=== PATIENT | female | born 1960 | race Caucasian/White ===

== ENCOUNTER → 2017-06-27 | Outpatient (CLI) | payer BC ==
--- NOTE | 2017-06-27 13:20 | RAD ---
EXAM DESCRIPTION: Knee,Left Complete CLINICAL HISTORY: 57 years, Female, PAIN COMPARISON: None TECHNIQUE: 4 views of the left knee including standing views FINDINGS: No fracture or dislocation. Bones appear normally mineralized with normal trabecular pattern. Narrowed appearance of medial more than lateral compartments on frontal view. Sclerosis and eburnation is prominent in the medial compartment with medial and lateral joint line spurring. There is calcification of the menisci. Lateral view shows normal position of the patella. Prominent posterior patellar spurring is present. Moderate-sized suprapatellar knee joint effusion. Normal contour of quadriceps and patellar tendons. No abnormal patellar tilt or subluxation on patellar sunrise view. Prominent posterior medial patellar spurring is seen with prominent spurring of the anterior medial and lateral femoral trochlear margins. IMPRESSION: Degenerative changes as described. Electronically signed by: Matt Galvan MD 06/27/2017 1:19 PM CDT
--- NOTE | 2017-06-27 13:21 | RAD ---
EXAM DESCRIPTION: Pelvis CLINICAL HISTORY: 57 years Female, PAIN COMPARISON: None. TECHNIQUE: Single frontal x-ray view of pelvis and hips FINDINGS: Orthopedic screws are seen in the lower L-spine with intervertebral disc spacer at L3-4. Severely narrowed L4-5 and L5-S1 disc spaces. Sacrum appears intact with degenerative changes at the SI joints. Surgical staple lines are seen in the pelvis. Degenerative narrowing of the left hip joint is seen with spurring. No pelvic fracture. Proximal femurs appear intact. IMPRESSION: Negative for fracture or dislocation. Degenerative changes in the left hip and lower L-spine. Electronically signed by: Matt Galvan MD 06/27/2017 1:20 PM CDT
== END ==
LOC: RAD 08:23
PROVIDERS: ATTEND Orthopaedic Surgery
DX: M25.562 Pain in left knee (principal); M25.552 Pain in left hip

== ENCOUNTER → 2017-10-16 | Outpatient (CLI) | payer BC ==
--- NOTE | 2017-10-20 10:49 | MAM ---
EXAM DESCRIPTION: 3D Screening BILATERAL : Digital Mammography. CLINICAL HISTORY: 57 years Female SCREENING . No complaints. Remote family history of breast cancer. Childbirth. Postmenopausal. Currently on HRT. COMPARISON: 2-D digital screening bilateral mammography 05/06/2014. No prior reports available. TECHNIQUE: Bilateral CC and MLO projection full-field images, 3-D tomosynthesis digital mammographic technique. CAD not utilized. FINDINGS: The breast parenchymal density pattern is: Scattered areas of fibroglandular density. No skin thickening or nipple retraction. . Bilateral axillary lymph nodes. Bilateral solitary microcalcifications. No new focal, stellate mass or density, focal asymmetry , and no suspicious microcalcifications bilaterally. Stable mammograms compared to prior study, taking into account differences in mammographic technique. IMPRESSION: BI-RADS CATEGORY: 2 - BENIGN FINDINGS. FOLLOW UP: Routine digital bilateral screening, one year interval from October 2017. Written communication explaining the IMPRESSION and follow-up, will be mailed to the patient and referring health care provider. According to the [employer], yearly mammograms are recommended starting at age 40 and continuing as long as a woman is in good health. Any breast change noted on a breast self-exam should be reported promptly to the patient's healthcare provider. Breast MRI is recommended for women with an approximately 20-25% or greater lifetime risk of breast cancer, including women with a strong family history of breast or ovarian cancer and women who have been treated for Hodgkin's disease. A negative mammographic report should not delay tissue diagnosis in patients with significant clinical history or physical findings. Extremely dense breast tissue limits the sensitivity of digital mammography. Electronically signed by: Favian Laguerre MD 10/20/2017 10:47 AM CDT
== END ==
LOC: MAMMO 15:30
PROVIDERS: ATTEND Family Medicine
DX: Z12.31 Encounter for screening mammogram for malignant neoplasm of breast (principal)

== ENCOUNTER 2018-08-19 05:19 | Day surgery (SDC) | payer BC ==
[2018-08-19] MEDS ORDERED: LACTATED RINGERS 1,000 ML ONE (05:47)
--- NOTE | 2018-08-19 09:38 | OP ---
DATE OF PROCEDURE: 08/19/18 PREPROCEDURE DIAGNOSIS: 1. Average-risk colorectal cancer screening. The patient's last colonoscopy was over 10 years ago. POSTPROCEDURE DIAGNOSIS: 1. Colonic polyp. 2. Diverticulosis. 3. Internal hemorrhoids. 4. Melanosis coli. PROCEDURE: 1. Colonoscopy with snare polypectomy. SURGEON: Petey Dunbar MD. SEDATION: Monitored anesthesia care. ESTIMATED BLOOD LOSS: 0 mL. PROCEDURE: Informed consent was obtained prior to sedation. The preprocedure cardiopulmonary assessment was satisfactory. The patient was brought to the Endoscopy Suite and placed in the left lateral decubitus position. The patient was then sedated by the anesthesia team. Digital rectal and perianal exams were normal. The tip of the Olympus colonoscope was inserted into the rectum and advanced under direct visualization to the cecum as identified by the presence of the appendiceal orifice and ileocecal valve. Preparation of the colon was good. The endoscope was then slowly withdrawn. Throughout the entire colon, the colonic mucosa demonstrated mild changes with melanosis. In the mid transverse colon, there was a 12 mm sessile polyp that was resected with hot snare polypectomy and retrieved. In the sigmoid colon, there were a few scattered diverticula. Retroflexed view of the rectum showed small, non- bleeding internal hemorrhoids. The endoscope was then withdrawn from the patient and the procedure terminated. RECOMMENDATION: 1. Discharge the patient home with escort. 2. Resume regular diet. 3. Continue present medications. 4. Followup pathology. 5. Surveillance colonoscopy due in 3 years' time. 6. Return to my office p.r.n. #[id number] [facility]
[2018-08-19] MEDS ORDERED: PROPOFOL 200 MG/20 ML VIAL IV ONE (10:00)
[2018-08-19 10:09] VITALS: O2SAT 98
[2018-08-19 10:34] VITALS: BP 139/89; TEMP 98.1
== END 2018-08-19 10:25 | disposition home or self-care (01) ==
LOC: AMB 05:19
PROVIDERS: ATTEND Internal Medicine Gastroenterology
DX: Z12.11 Encounter for screening for malignant neoplasm of colon (principal); D12.3 Benign neoplasm of transverse colon; K57.30 Diverticulosis of large intestine without perforation or abscess without bleeding; K64.8 Other hemorrhoids; K63.89 Other specified diseases of intestine; I10 Essential (primary) hypertension; Z79.899 Other long term (current) drug therapy
CPT/HCPCS: 00811; 45385; J3490; J7120

== ENCOUNTER → 2019-02-15 | Outpatient (CLI) | payer BC ==
--- NOTE | 2019-02-15 11:15 | RAD ---
EXAM DESCRIPTION: Knee,Right Complete CLINICAL HISTORY: PAIN IN RIGHT KNEE COMPARISON: None. FINDINGS: 4 standing views of the right knee show no acute fracture, focal bone destruction, or joint dislocation. Moderate narrowing of the lateral and mild narrowing of the medial tibiofemoral compartments is seen with mild joint line osteophytes. Calcifications of the meniscal cartilage are seen. Small posterior superior and inferior osteophytes of the patella are seen without significant narrowing of the patellofemoral compartment. Mild increased density in the suprapatellar bursa. Soft tissues are otherwise unremarkable. IMPRESSION: Mild to moderate 3 compartment osteoarthritic changes of the right knee are more prominent in the lateral tibiofemoral compartment. Chondrocalcinosis is seen suggesting CPPD arthropathy versus pseudogout. Electronically signed by: Walter Toribio MD 02/15/2019 11:13 AM [facility]
--- NOTE | 2019-02-15 11:28 | RAD ---
EXAM DESCRIPTION: Pelvis CLINICAL HISTORY: 59 years Female, PAIN IN RIGHT AND LEFT HIP COMPARISON: June 27, 2017 Findings: One view/radiograph Redemonstrated L4/L5 fusion. No complication. Similar L4/L5 and L5/S1 spondylosis. Degenerative changes of the sacroiliac joints, unchanged. No acute fracture or dislocation is identified. Surgical suture material overlies the pelvis. Moderate left and mild right hip osteoarthritis. IMPRESSION: Chronic and degenerative changes. No acute osseous abnormality. Electronically signed by: Frank Myers MD 02/15/2019 11:27 AM [facility]
--- NOTE | 2019-02-15 11:33 | RAD ---
EXAM DESCRIPTION: Knee,Left Complete CLINICAL HISTORY: PAIN IN LEFT KNEE COMPARISON: June 27, 2017 FINDINGS: 4 standing views of the left knee show severe narrowing of the medial tibiofemoral compartment with flattening of the weightbearing articular surface including sclerotic changes and moderate joint line osteophytes worsened from previous. Mild joint line osteophytes of the lateral tibiofemoral compartment are seen. Moderate calcifications in the menisci are identified. Moderate posterior superior osteophyte of the patella with osteophytes of the femoral trochlear groove are seen. Mild narrowing of the patellofemoral compartment. Mild increased density in the suprapatellar bursa. Soft tissues are otherwise unremarkable. IMPRESSION: Interval worsening of to severe 3 compartment osteoarthritic changes of the left knee are most significant in the medial tibiofemoral compartment. Chondrocalcinosis is seen suggesting CPPD arthropathy versus pseudogout. Electronically signed by: Walter Toribio MD 02/15/2019 11:32 AM [facility]
== END ==
LOC: RAD 09:23
PROVIDERS: ATTEND Orthopaedic Surgery
DX: M16.0 Bilateral primary osteoarthritis of hip (principal); M47.896 Other spondylosis, lumbar region; M47.898 Other spondylosis, sacral and sacrococcygeal region; M17.0 Bilateral primary osteoarthritis of knee; M11.261 Other chondrocalcinosis, right knee; M11.262 Other chondrocalcinosis, left knee

== ENCOUNTER → 2019-02-17 | Outpatient (CLI) | payer BC ==
--- NOTE | 2019-02-17 17:22 | RAD ---
EXAM DESCRIPTION: Chest,2 Views CLINICAL HISTORY: PREOP COMPARISON: None TECHNIQUE: PA/lateral FINDINGS: There is no acute appearing cardiac or pulmonary abnormality. Heart size is normal with normal pulmonary vascularity. No pleural effusion or pneumothorax. Lungs are clear with no consolidating infiltrate. Lateral view shows intact sternum and T-spine. IMPRESSION: No acute process is identified in the chest. Electronically signed by: Matt Galvan MD 02/17/2019 5:21 PM [facility]
== END ==
LOC: LAB.O 11:46
PROVIDERS: ATTEND Orthopaedic Surgery
DX: Z01.818 Encounter for other preprocedural examination (principal)

== ENCOUNTER 2019-03-05 05:31 | Inpatient (IN) | payer BC ==
[2019-03-05] MEDS ORDERED: ceFAZolin SODIUM 1 GM VIAL ONE ×3 (05:42→19:48)
[2019-03-05] MEDS ORDERED: LACTATED RINGERS 1,000 ML ONE (05:42)
[2019-03-05] MEDS ORDERED: SODIUM CHL 0.9% 100ML MINI-BAG 100 ML IVPB ONE (05:42)
[2019-03-05] MEDS ORDERED: TRANEXAMIC ACID 1,000 MG/10 ML VIAL ONE ×2 (05:42→05:43)
[2019-03-05] MEDS ORDERED: VANCOMYCIN HCL INJ 1,000 MG VIAL IVPB ONE ×3 (05:42→19:48)
[2019-03-05] MEDS ORDERED: SODIUM CHLORIDE 0.9% 100ML 100 ML IVPB ONE ×3 (05:43→19:48)
[2019-03-05] MEDS ORDERED: SODIUM CHLORIDE 0.9% 250ML 250 ML ONE ×3 (05:43→19:47)
[2019-03-05] MEDS ORDERED: MIDAZOLAM INJ 5 MG/5 ML VIAL ONE (06:37)
[2019-03-05] MEDS ORDERED: HYDROmorphone HCL INJ 2 MG/ML VIAL ONE (06:37)
[2019-03-05] MEDS ORDERED: KETAMINE HCL 100 MG/ML VIAL ONE (06:37)
[2019-03-05] MEDS ORDERED: DEXAMETHASONE INJ 10 MG/ML VIAL ONE (07:00)
[2019-03-05] MEDS ORDERED: PROPOFOL 200 MG/20 ML VIAL IV ONE (07:00)
[2019-03-05] MEDS ORDERED: MAGNESIUM SULFATE INJ 1 GM/2 ML VIAL ONE (07:00)
[2019-03-05] MEDS ORDERED: SODIUM CHLORIDE 0.9% 50 ML VIAL ONE (07:00)
[2019-03-05] MEDS ORDERED: EPINEPHrine HCL AMP 1 MG/ML AMP ONE (07:00)
[2019-03-05] MEDS ORDERED: diphenhydrAMINE HCL 50 MG/ML VIAL ONE (07:00)
[2019-03-05] MEDS: BUPIVACAINE 0.5% 30 ML VIAL INJ ONE ×2 (07:48→08:26)
[2019-03-05] MEDS: BUPIVACAINE LIPOSOME 13.3 MG/ML VIAL INJ ONE ×2 (07:48→08:26)
[2019-03-05] MEDS: ceFAZolin SODIUM 1 GM VIAL ONE ×3 (07:48→08:51)
[2019-03-05] MEDS: VANCOMYCIN HCL INJ 1,000 MG VIAL IVPB ONE ×2 (07:49→08:51)
[2019-03-05] MEDS ORDERED: ELECTROLYTE-A 1,000 ML IVS ONE (09:01)
[2019-03-05] MEDS ORDERED: ALUMINUM & MAGNESIUM HYDROXIDE 30 ML UD PO PRN (09:40)
[2019-03-05] MEDS ORDERED: ACETAMINOPHEN 325 MG TAB PO PRN (09:40)
[2019-03-05] MEDS ORDERED: MORPHINE SULFATE INJ 10 MG/ML VIAL IV PRN (09:40)
[2019-03-05] MEDS ORDERED: PROMETHAZINE HCL INJ 25 MG in SODIUM CHLORIDE 0.9% 50ML 50 ML IVPB PRN (09:40)
[2019-03-05] MEDS ORDERED: SODIUM CHLORIDE 0.9% (FLUSH) 10 ML SYG IV PRN (09:40)
[2019-03-05] MEDS ORDERED: TRANEXAMIC ACID INJ 1,000 MG in SODIUM CHLORIDE 0.9% 100ML 100 ML IVPB ONE (09:40)
[2019-03-05] MEDS ORDERED: TEMAZEPAM 15 MG CAP PO PRN (09:40)
[2019-03-05] MEDS ORDERED: BENZOCAINE-MENTH LOZ (CEPACOL) 1 EA LOZ MT PRN (09:40)
[2019-03-05] MEDS ORDERED: BISACODYL SUPPOSITORY 10 MG PR PRN (09:40)
[2019-03-05] MEDS ORDERED: MORPHINE SULFATE INJ 10 MG/ML VIAL IM PRN (09:40)
[2019-03-05] MEDS ORDERED: NALOXONE HCL INJ 0.4 MG/ML VIAL IV PRN (09:40)
[2019-03-05] MEDS ORDERED: PROMETHAZINE HCL INJ 12.5 MG in SODIUM CHLORIDE 0.9% 50ML 50 ML IVPB PRN (09:40)
[2019-03-05] MEDS ORDERED: ONDANSETRON INJ 4 MG/2 ML VIAL IV PRN (09:40)
[2019-03-05] MEDS ORDERED: MAGNESIUM HYDROXIDE 30 ML UD PO PRN (09:40)
[2019-03-05] MEDS ORDERED: ZOLPIDEM TARTRATE 5 MG TAB PO PRN (09:40)
[2019-03-05] MEDS ORDERED: MORPHINE PCA 1 MG/ML 100 ML BAG IVPB SCH (10:00)
[2019-03-05] MEDS ORDERED: NITROGLYCERIN 0.4 MG 25 EA TAB SL ONE (11:32)
[2019-03-05] MEDS: IV SET AND CAP CHANGE INJ INJ SCH (12:17)
--- NOTE | 2019-03-05 14:06 | RAD ---
EXAM DESCRIPTION: Knee,Left 1 or 2 Views CLINICAL HISTORY: 59 years Female, TKA TECHNIQUE: 2 views of the left knee were performed. COMPARISON: None available. FINDINGS: The visualized bones appear well mineralized. No acute fracture or dislocation. Changes of total knee arthroplasty with expected postsurgical changes in the surrounding soft tissues. Small joint effusion. IMPRESSION: Changes of total knee arthroplasty with expected postsurgical changes in the surrounding soft tissues. Electronically signed by: Kathleen Carter MD 03/05/2019 2:04 PM [facility]
--- NOTE | 2019-03-05 14:22 | RAD ---
EXAM DESCRIPTION: Fluoroscopy Up to 1Hr CLINICAL HISTORY: 59 years, Female, LEFT TKA FINDINGS/IMPRESSION: Intraoperative fluoroscopic images saved for the benefit of the surgeon demonstrate changes of left total knee arthroplasty. Please see procedure report for full details. Fluoroscopy time: 1.4 second Dose: 0.1 mGy Fluoroscopic images: One Electronically signed by: James Gale DO 03/05/2019 2:20 PM [facility]
[2019-03-05] MEDS: ceFAZolin SODIUM 2 GM in SODIUM CHLORIDE 0.9% 100ML 100 ML IVPB SCH ×2 (17:06→23:17)
[2019-03-05] MEDS: CELECOXIB 100 MG CAP PO SCH (17:07)
[2019-03-05] MEDS: DEX 5% W/NACL 0.45% 1000ML 1,000 ML IVS PRN (17:51)
[2019-03-05] MEDS: VANCOMYCIN HCL INJ 1,000 MG in SODIUM CHLORIDE 0.9% 250ML 250 ML IVPB SCH (17:53)
[2019-03-05] MEDS: DOCUSATE CALCIUM 240 MG CAP PO SCH (20:28)
--- NOTE | 2019-03-05 21:58 | CONS ---
DATE OF CONSULTATION: 03/05/19 SUPERVISING PHYSICIAN: Petey Borja M.D. REASON FOR CONSULTATION: Postoperative management for left total knee arthroplasty. HISTORY OF PRESENT ILLNESS: Ms. Manriquez is a 59 year-old female patient that has a longstanding history of osteoarthritis especially affecting the left knee. She has had multiple attempts at outpatient measures for conservative treatment, including orthopedic services physical therapy but has failed to respond to any outpatient treatment measures for any significant relief of pain. She requested an elective total left knee arthroplasty. She was admitted for an elective left total knee arthroplasty today. She had no intraoperative complications. She was seen in the immediate postoperative state in stable condition. PAST MEDICAL HISTORY: 1. Hypertension. PAST SURGICAL HISTORY: 1. Total hysterectomy. 2. Cholecystectomy. 3. Appendectomy. 4. Tonsillectomy. 5. Back surgery. HOME MEDICATIONS: 1. Potassium 99 mg daily. 2. Xyzal 5 mg tablet daily. 3. Lisinopril 5 mg daily. 4. Magnesium 250 mg daily. ALLERGIES: ACETAMINOPHEN, IODINE AND PENICILLIN. FAMILY HISTORY: Dad at age 76 due to complications from sepsis. He had a history of diabetes mellitus and heart disease. She has 1 brother who has heart problems. She has 1 sister that has diabetes. Her mother is healthy. SOCIAL HISTORY: The patient lives in [place], [place]. She is . 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 She does not drink alcohol and has never smoked. REVIEW OF SYSTEMS: CONSTITUTIONAL: Denied any fevers, chills, general malaise. HEENT: Negative for any ear aches, sore throat, nasal congestion, headaches or vision changes. RESPIRATORY: Denies any coughing, wheezing or shortness of breath. CARDIOVASCULAR: Denied any chest pains, palpitations or syncopal episodes. GASTROINTESTINAL: Denied any nausea, vomiting, diarrhea, constipation or abdominal pains. GENITOURINARY: Denied any dysuria, hematuria or polyuria. MUSCULOSKELETAL: As noted in history of present illness. NEUROLOGIC: Denies any ataxia, seizures, syncopal episodes or other focal deficits. HEMATOLOGIC: Denies any easy bruising, unexplained bleeding or transfusion reaction. SKIN: No reported lesions, rashes, moles or unexplained changes. PHYSICAL EXAMINATION: VITAL SIGNS: Temperature 97.7, pulse 84, blood pressure 132/82, respirations 16, satting 97% on room air. Admission weight 100 kg. GENERAL: The patient is seen in the immediate postoperative state in stable condition. Appeared to be with no distress. She was alert. HEENT: Tympanic membranes are clear bilaterally. Oropharynx is pink and moist without any lesions. NECK: Supple, non-tender. Full range of motion. No jugular venous distention. CHEST: Lung sounds were clear to auscultation without any notable rhonchi, wheezing or rales. HEART: Regular rate and rhythm without appreciable murmurs, gallops, or rubs. ABDOMEN: Soft, non-tender. Positive bowel sounds. EXTREMITIES: Left knee has a large Arturo bandage in place with Iceman, current in the CPM with distal pulse strong, capillary refill brisk. NEUROLOGIC: She was alert and oriented times three. Cranial nerves II-XII are grossly intact. SKIN: Warm, pink and dry. LABORATORY: Preoperative was negative. Postoperative H&H is pending. ASSESSMENT: 1. Osteoarthritis of the left knee status post left total knee arthroplasty, postoperative day #0. 2. Hypertension on Lisinopril. PLAN: Ms. Manriquez is going to be followed through her postoperative and rehabilitation efforts. Will defer further orthopedic management to Dr. Barrera. I will review her medications and resume those as appropriate to care. She will be on deep venous thrombosis prophylaxis per protocol. Plan at [facility] I have encouraged her to do deep breathing exercises for any postoperative complications. Anticipate her length of stay to be at least 2 to 3 days. Until we can transition her to outpatient management will continue to follow and treat as needed. [facility][id number] [facility]
[2019-03-05] MEDS: ENOXAPARIN SODIUM 30 MG/0.3 ML SYG SUBCU SCH (23:11)
[2019-03-06] MEDS: CYCLOBENZAPRINE HCL 10 MG TAB PO PRN ×3 (02:24→20:26)
[2019-03-06] MEDS: VANCOMYCIN HCL INJ 1,000 MG in SODIUM CHLORIDE 0.9% 250ML 250 ML IVPB SCH (06:15)
[2019-03-06] MEDS: CELECOXIB 100 MG CAP PO SCH ×2 (07:52→17:44)
[2019-03-06] MEDS ORDERED: SODIUM CHLORIDE 0.9% 100ML 100 ML IVPB ONE (08:47)
[2019-03-06] MEDS ORDERED: ceFAZolin SODIUM 1 GM VIAL ONE ×2 (08:47→08:52)
[2019-03-06] MEDS: ceFAZolin SODIUM 2 GM in SODIUM CHLORIDE 0.9% 100ML 100 ML IVPB SCH (08:55)
[2019-03-06] MEDS: LISINOPRIL 5 MG TAB PO SCH (08:57)
[2019-03-06] MEDS: MAGNESIUM OXIDE 400 MG TAB PO SCH (08:57)
[2019-03-06] MEDS ORDERED: [UNRECOGNIZED DRUG - REMARK] PO SCH (09:00)
[2019-03-06] MEDS: ENOXAPARIN SODIUM 30 MG/0.3 ML SYG SUBCU SCH ×2 (12:04→23:16)
[2019-03-06] MEDS: DOCUSATE CALCIUM 240 MG CAP PO SCH (20:21)
[2019-03-06] MEDS: DEX 5% W/NACL 0.45% 1000ML 1,000 ML IVS PRN (20:21)
--- NOTE | 2019-03-06 22:19 | PN ---
DATE: 03/06/19 SUPERVISING PHYSICIAN: Petey Borja M.D. SUBJECTIVE: The patient is doing okay, but she had been having pain which is making her refuse to do much of her physical therapy. It is being reinforced that she is to participate in physical therapy and will work on controlling her pain much better. She has had no further complaints. No nausea. No chest pains. OBJECTIVE: VITAL SIGNS: Temperature 98.5, pulse 73, blood pressure 115/66, respirations 18, satting 96% on room air. GENERAL: The patient is resting comfortably. CHEST: Lung sounds are clear to auscultation. HEART: Regular rate and rhythm. ABDOMEN: Soft, non-tender. Positive bowel sounds. EXTREMITIES: Left knee has myranda Arturo bandage in place. Capillary refill is brisk with pulses strong bilaterally. NEUROLOGIC: She is alert and oriented times three. LABORATORY: Postoperative H&H was 12.3 and 36.3 respectively. ASSESSMENT: 1. Severe osteoarthritis requiring surgical intervention to include a left total knee arthroplasty, postoperative day #1. 2. Hypertension on Lisinopril. PLAN: Will continue follow the patient through her physical therapy efforts and rehabilitation phase. Continue to encourage deep breathing exercises. Will encourage and reinforce the use of pain management so that she can participate with her physical therapy. We have resumed her home medications. I would anticipate at least another 24 to 48 hours before she will be ready to discharge. Until then will continue to monitor and treat as needed. #[id number] and [id number] MTDD
[2019-03-07] MEDS: traMADol HCL 50 MG TAB PO PRN ×3 (05:01→23:52)
[2019-03-07] MEDS: CELECOXIB 100 MG CAP PO SCH ×2 (07:17→17:10)
[2019-03-07] MEDS: CETIRIZINE HCL 10 MG TAB PO SCH (09:13)
[2019-03-07] MEDS: LISINOPRIL 5 MG TAB PO SCH (09:13)
[2019-03-07] MEDS: MAGNESIUM OXIDE 400 MG TAB PO SCH (09:14)
[2019-03-07] MEDS: SODIUM CHLORIDE 0.9% (FLUSH) 10 ML SYG IV SCH ×2 (09:14→20:42)
[2019-03-07] MEDS: CYCLOBENZAPRINE HCL 10 MG TAB PO PRN ×2 (09:40→19:47)
--- NOTE | 2019-03-07 10:10 | PN ---
DATE: 03/06/19 SUBJECTIVE: Ms. Manriquez is doing pretty well. She is in her CPM. OBJECTIVE: She is afebrile. Vital signs are stable. Dressing is clean, dry and intact. ASSESSMENT: Status post total knee arthroplasty. PLAN: At this point, she is to continue on weightbearing as tolerated. [facility][id number]
[2019-03-07] MEDS: ENOXAPARIN SODIUM 30 MG/0.3 ML SYG SUBCU SCH ×2 (13:34→23:11)
--- NOTE | 2019-03-07 20:09 | PN ---
DATE: 03/07/19 SUBJECTIVE: She is doing really well. Her pain is well controlled. OBJECTIVE: She is afebrile. Vital signs are stable. Wound is clean. There are no signs or symptoms of infection. ASSESSMENT: 1. Status post total knee arthroplasty. PLAN: The plan at this point is for her to continue with weightbearing as tolerated. #[id number] [facility]TD[facility]
[2019-03-07] MEDS: DOCUSATE CALCIUM 240 MG CAP PO SCH (20:42)
--- NOTE | 2019-03-07 21:47 | PN ---
DATE: 03/07/19 SUPERVISING PHYSICIAN: Petey Borja M.D. SUBJECTIVE: The patient did much better with her rehab today. She actually ambulated out in the hallway. She has had good pain control. She has not had any nausea or vomiting. OBJECTIVE: VITAL SIGNS: She remains afebrile. Temperature 98.4, pulse 90, blood pressure 154/88, satting 97% on room air at 18 respirations. GENERAL: The patient is resting comfortably currently utilizing CPM. She is alert. CHEST: Clear to auscultation. HEART: Regular rate and rhythm. ABDOMEN: Soft, non-tender. Positive bowel sounds. EXTREMITIES: Left knee has an island dressing in place which is clean and dry. No signs of infection. Distally pulses are strong, capillary refill is brisk. NEUROLOGIC: She is alert and oriented times three. LABORATORY: No additional laboratory studies. RADIOLOGY: No additional radiographic studies. ASSESSMENT: 1. Severe osteoarthritis requiring surgical intervention to include a left total knee arthroplasty, postoperative day #2. 2. Hypertension on Lisinopril. PLAN: Will continue to follow the patient through her physical therapy efforts. Anticipate discharging tomorrow to continue with [facility]. Will continue to encourage good bronchial hygiene. Until we can transition to outpatient management will continue to monitor and treat as needed. #[id number] [facility]
[2019-03-08] MEDS: CELECOXIB 100 MG CAP PO SCH (07:52)
[2019-03-08] MEDS: traMADol HCL 50 MG TAB PO PRN (07:53)
[2019-03-08] MEDS: LISINOPRIL 5 MG TAB PO SCH (09:41)
[2019-03-08] MEDS: MAGNESIUM OXIDE 400 MG TAB PO SCH (09:41)
[2019-03-08] MEDS: CETIRIZINE HCL 10 MG TAB PO SCH (09:41)
[2019-03-08] MEDS: SODIUM CHLORIDE 0.9% (FLUSH) 10 ML SYG IV SCH (09:41)
[2019-03-08] MEDS: IV SET AND CAP CHANGE INJ INJ SCH (11:00)
[2019-03-08 11:04] VITALS: TEMP 99
[2019-03-08] MEDS: ENOXAPARIN SODIUM 30 MG/0.3 ML SYG SUBCU SCH (11:59)
[2019-03-08 16:03] VITALS: BP 140/64; O2SAT 95
[2019-03-08] MEDS ORDERED: BISACODYL SUPPOSITORY 10 MG PR ONE (21:00)
[2019-03-08] MEDS ORDERED: MAGNESIUM HYDROXIDE 30 ML UD PO ONE (21:00)
--- NOTE | 2019-03-16 09:20 | DS ---
SUPERVISING PHYSICIAN: Hood Camacho MD ADMISSION DIAGNOSIS: 1. Osteoarthritis of the left knee status post left total knee arthroplasty, postoperative day #0. 2. Hypertension on Lisinopril. DISCHARGE DIAGNOSIS: 1. Severe osteoarthritis requiring surgical intervention to include a left total knee arthroplasty, postoperative day #3. 2. Hypertension on Lisinopril. REASON FOR HOSPITALIZATION: Ms. Manriquez is a 59 year-old female patient that has a longstanding history of osteoarthritis especially affecting the left knee. She has had multiple attempts at outpatient measures for conservative treatment, including orthopedic services physical therapy but has failed to respond to any outpatient treatment measures for any significant relief of pain. She requested an elective total left knee arthroplasty. She was admitted for an elective left total knee arthroplasty today. She had no intraoperative complications. She was seen in the immediate postoperative state in stable condition. LABORATORY: Postoperative hemoglobin was 12.3 and hematocrit 36.3. RADIOLOGY: Please see reports for details from preoperative workup. HOSPITAL COURSE: Ms. Manriquez was admitted for elective left total knee arthroplasty. She did well postoperatively and showed good clinical improvement with her rehabilitation efforts to continue with outpatient management. Therefore, she was discharged. PLAN: Ms. Manriquez was discharged on 03/08/19 with instructions to continue with outpatient physical [facility] as scheduled. She was to followup with Dr. Barrera as scheduled. Wound care was per Dr. Barrera's instructions. She was told to return to the hospital as needed. Diet was to resume usual diet as tolerated. Activity to ambulate only with a walker as per physical therapy. She may shower, no tub baths. Medications on discharge included: 1. Tramadol 50 mg q.4h. as needed, prescription written by Dr. Barrera. 2. Flexeril 10 mg q.8h. as needed, #15, no refills. 3. Xarelto 10 mg daily, #8, no refills. DISPOSITION: The patient is discharged home. CONDITION ON DISCHARGE: Stable and improved. #[id number] [facility]TDD
--- NOTE | 2019-03-16 11:00 | OP ---
DATE OF PROCEDURE: 03/05/19 PREOPERATIVE DIAGNOSIS: 1. Left knee osteoarthritis. POSTOPERATIVE DIAGNOSIS: 1. Left knee osteoarthritis. PROCEDURE: 1. Total knee arthroplasty. SURGEON: Nitesh Barrera MD. TOP BOTTOM ATTACHING MACHINE OPERATOR: Favian Hylton CST, SA-C. ANESTHESIA: General anesthesia. COMPLICATIONS: None. FINDINGS: Severe osteoarthritis of the knee. INDICATION: Ms. Manriquez has a history of severe knee pain. She has had conservative measures, however, has failed to gain relief. After discussing the risks, benefits and alternatives to operative therapy for her arthritis, the patient has given informed consent for total knee arthroplasty. PROCEDURE: The patient was brought to the Operating Room and placed in supine position. General anesthesia was induced and the patient's leg was sterilely prepped and draped. Following prepping and draping, the distal femur was exposed and using an intramedullary guide, the distal femoral cut was made. The appropriate sized cutting block was measured, pinned into place, and the anterior, posterior, and chamfer cuts were made. The ACL was transected and the tibia was subluxed. Both the medial and lateral menisci were removed. An intramedullary guide was used to make the proximal tibial cut. The appropriate sized base plate was placed and a trial polyethylene was placed. The trial femur was placed, the knee was reduced, and the knee was taken through a range of motion. The knee was stable in anterior, posterior, varus and valgus stress. The patella tracked anatomically without evidence of subluxation or dislocation. After trialing, the trial components were removed and the bony surfaces were thoroughly irrigated with saline. Following irrigation, the surfaces were dried and the final components were cemented into place. The excess cement was removed and the remaining cement was allowed to cure. The knee was again taken through a range of motion to confirm stability. The wound was then irrigated with saline and closure was performed using PDS to approximate the arthrotomy followed by closure of the subcutaneous tissues with a combination of running and interrupted Monocryl sutures. Sterile dressing was placed. The patient was awoken from anesthesia and taken to Recovery. COMPONENTS: Tereza Triathlon knee, size 2 femur, size 2 tibia, 9 mm insert. POSTOPERATIVE PLAN: The patient will be weight-bearing as tolerated on postoperative day 1. [facility][id number] [facility]
== END 2019-03-08 12:45 | disposition home or self-care (01) | DRG 561 ==
LOC: AMB 05:31 → MS 10:29
PROVIDERS: ADMIT Orthopaedic Surgery; ATTEND Nurse Practitioner Family
DX: Z47.1 Aftercare following joint replacement surgery (principal); Z96.652 Presence of left artificial knee joint; I10 Essential (primary) hypertension

== ENCOUNTER → 2019-12-28 | Outpatient (CLI) | payer OTHER ==
--- NOTE | 2019-12-31 15:57 | MAM ---
EXAM DESCRIPTION: 3D Screening BILATERAL : Digital Mammography. CLINICAL HISTORY: 59 years Female ANNUAL SCREENING . No complaints. Remote family history of breast cancer. Menarche age 9. Childbirth age 18. Menopause age 46. HRT less than 5 years ago. Lifetime risk of developing breast cancer (Tyrer-Cuzick model)(%): 7.0 COMPARISON: Bilateral screening digital breast tomosynthesis October 2017. TECHNIQUE: Bilateral CC and MLO projection full-field images, digital tomosynthesis mammographic technique. Bilateral digital 2-D full-field MLO images. CAD available for 2-D images. FINDINGS: The breast parenchymal density pattern is: Scattered areas of fibroglandular density. No skin thickening or nipple retraction. Axillary nodes. Solitary microcalcifications. Vascular calcifications. Circumscribed fatty density in the posterior inferior left breast in the midline may represent fat necrosis or lipoma. Stable since the prior study. No new focal, stellate mass or density, focal asymmetry , and no suspicious microcalcifications bilaterally. Stable mammograms compared to prior study. IMPRESSION: Benign exam. BIRAD CATEGORY: 2 BENIGN FINDINGS. RECOMMENDATIONS: FOLLOW UP: Routine digital bilateral mammographic screening, one year interval from December 2019. Written communication explaining the IMPRESSION and follow-up, will be mailed to the patient and referring health care provider. According to the [employer], yearly mammograms are recommended starting at age 40 and continuing as long as a woman is in good health. Any breast change noted on a breast self-exam should be reported promptly to the patient's healthcare provider. Breast MRI is recommended for women with an approximately 20-25% or greater lifetime risk of breast cancer, including women with a strong family history of breast or ovarian cancer and women who have been treated for Hodgkin's disease. A negative mammographic report should not delay tissue diagnosis in patients with significant clinical history or physical findings. Extremely dense breast tissue limits the sensitivity of digital mammography. Electronically signed by: Favian Laguerre MD 12/31/2019 3:55 PM CDT
== END ==
LOC: MAMMO 13:58
PROVIDERS: ATTEND Family Medicine
DX: Z12.31 Encounter for screening mammogram for malignant neoplasm of breast (principal)